=== PATIENT | male | born 1945 | race Caucasian/White ===

== ENCOUNTER 2021-04-07 08:51 | Observation (INO) ==
[2021-04-07] MEDS ORDERED: NS 0.9% 1000 ml BAG 1,000 ML IV ONE (09:14)
[2021-04-07 09:37] LABS: ABS Eosinophils 0.2 10^3/ul (0-0.6); ABS Lymphocytes 0.9 10^3/ul (1.0-4.8); ABS Monocytes 0.5 10^3/ul (0-0.8); ABS Neutrophils 11.5 10^3/ul (1.5-7.7); Eosinophil % 1.4 %; Hematocrit 40 % (42-52); Hemoglobin 13.7 g/dL (14.0-18.0); Lymphocyte % 6.6 %; Mean Corpuscular HGB Conc 34 g/dL (31-36); Mean Corpuscular Hemoglobin 32 pg (27-31); Mean Corpuscular Volume 93 fL (80-94); Mean Platelet Volume 8.9 fL (7.4-10.4); Platelet Count 217 10^3/uL (150-450); Red Blood Count 4.34 10^6 /uL (4.18-5.48); Red Cell Distribution Width 13 % (10-15); White Blood Count 13.2 10^3/uL (3.5-10.8)
[2021-04-07 09:57] LABS: Albumin 3.6 g/dL (3.2-5.2); Albumin/Globulin Ratio 1.2 (1-3); Calcium 8.8 mg/dL (8.6-10.3); EGFR African American 46.2 (>60); EGFR Non-African American 38.1 (>60); Globulin 3.1 g/dL (2-4); Potassium 4.7 mmol/L (3.5-5.0); Total Bilirubin 0.9 mg/dL (0.2-1.0); Total Protein 6.7 g/dL (6.4-8.9)
[2021-04-07] MEDS ORDERED: oxyCODONE/Acetamin 5/325 mg TAB PO ONE (10:08)
[2021-04-07 11:13] LABS: Urine Appearance Clear; Urine Bilirubin Negative (Negative); Urine Blood Negative (Negative); Urine Color Yellow; Urine Glucose Negative (Negative); Urine Ketones Negative (Negative); Urine Nitrite Negative (Negative); Urine Protein Negative (Negative); Urine Specific Gravity 1.017 (1.002-1.030); Urine Urobilinogen Negative (Negative)
[2021-04-07] MEDS ORDERED: cefTRIAXone 1 gm/50 mL NS BAG 1 GM/50 ML BAG IV ONE (11:28)
[2021-04-07] MEDS ORDERED: Iohexol 180 (CONTRAST) 20 ML SDV IV ONE (12:23)
[2021-04-07] MEDS ORDERED: fentaNYL 100 mcg/2 ml 50 MCG/ML VIAL ONE ×2 (12:52→14:56)
[2021-04-07] MEDS ORDERED: Lidocaine 2% PF 5 ML VIAL ONE (12:52)
[2021-04-07] MEDS ORDERED: Propofol 10 MG/ML 20 ML BTL ONE (12:52)
[2021-04-07] MEDS ORDERED: Ondansetron 4 mg VIAL 2 MG/ML 2 ml VIAL IV PRN (13:46)
[2021-04-07] MEDS ORDERED: Naloxone 0.4 mg VIAL 0.4 mg/ml 1 ml VIAL IV PRN (13:46)
[2021-04-07] MEDS ORDERED: DiMENhydriNATE IV 50 mg/ml 1 ml VIAL IV PUSH PRN (13:46)
[2021-04-07] MEDS ORDERED: oxyCODONE/Acetamin 5/325 mg TAB PO PRN ×2 (13:46→17:17)
[2021-04-07] MEDS: fentaNYL 100 mcg/2 ml 50 MCG/ML VIAL IV PRN ×2 (14:57→15:28)
[2021-04-07] MEDS: Brinzolamide 1% OPHTH SOL(NF) BTL BOTH EYES SCH (20:34)
[2021-04-07] MEDS ORDERED: Latanoprost 0.005% 2.5 ml BTL BOTH EYES SCH (21:00)
[2021-04-07] MEDS: NS 0.9% 1000 ml BAG 1,000 ML IV SCH (22:56)
[2021-04-08 04:38] LABS: ABS Eosinophils 0.2 10^3/ul (0-0.6); ABS Lymphocytes 1.3 10^3/ul (1.0-4.8); ABS Monocytes 0.9 10^3/ul (0-0.8); ABS Neutrophils 7.8 10^3/ul (1.5-7.7); Hematocrit 35 % (42-52); Lymphocyte % 13.1 %; Mean Corpuscular HGB Conc 35 g/dL (31-36); Mean Corpuscular Hemoglobin 32 pg (27-31); Mean Corpuscular Volume 94 fL (80-94); Nucleated Red Blood Cells % 0.1; Platelet Count 168 10^3/uL (150-450); Red Blood Count 3.71 10^6 /uL (4.18-5.48); Red Cell Distribution Width 13 % (10-15); White Blood Count 10.3 10^3/uL (3.5-10.8)
[2021-04-08 05:19] LABS: Calcium 7.7 mg/dL (8.6-10.3); EGFR African American 53.1 (>60); EGFR Non-African American 43.8 (>60); Potassium 4.4 mmol/L (3.5-5.0)
[2021-04-08] MEDS: NS 0.9% 1000 ml BAG 1,000 ML IV SCH (05:29)
[2021-04-08 05:39] LABS: Hepatitis C Antibody Negative (Negative)
[2021-04-08] MEDS: Brinzolamide 1% OPHTH SOL(NF) BTL BOTH EYES SCH (08:24)
[2021-04-08] MEDS ORDERED: Timolol 0.5% OPTH.SOL BTL LEFT EYE SCH (09:00)
[2021-04-08] MEDS ORDERED: NETARSUDIL MESYLATE EYE LEFT EYE SCH (09:00)
[2021-04-08] MEDS ORDERED: Alendronate 70 mg TAB (NF) PO SCH (09:00)
[2021-04-08 11:43] VITALS: BP 149/75
== END 2021-04-08 12:00 | disposition home or self-care (01) ==
LOC: ED 08:51 → SDS 12:05 → SSU 12:05
PROVIDERS: ADMIT Urology; ATTEND Urology

== ENCOUNTER 2024-11-23 11:26 | Inpatient (IN) ==
[2024-11-23 12:06] LABS: ABS Lymphocytes 0.3 10^3/uL (1.0-4.8); ABS Monocytes 0.3 10^3/uL (0.0-1.1); Eosinophil % 0.1 %; Hematocrit 40.5 % (38-53); Hemoglobin 13.4 g/dL (13.2-16.3); Lymphocyte % 2.3 %; Mean Corpuscular Hemoglobin 32.8 pg (27-33); Mean Corpuscular Hgb Conc 33.2 g/dL (31-36); Mean Corpuscular Volume 98.6 fL (80-97); Mean Platelet Volume 9.9 fL (7.5-11.2); Platelet Count 129 10^3/uL (150-450); Red Cell Distribution Width 13.4 % (12-17); White Blood Count 11.6 10^3/uL (3.6-10.2)
[2024-11-23 12:27] LABS: High Sens Troponin Baseline 17 pg/mL (<20)
[2024-11-23 12:38] LABS: ALT 31 U/L (7-52); AST 18 U/L (13-39); Albumin 3.6 g/dL (3.5-5.7); Albumin/Globulin Ratio 1.7 (1-3); Alkaline Phosphatase 75 U/L (35-149); Anion Gap 9 mmol/L (2-16); Blood Urea Nitrogen 43 mg/dL (6-24); CO2 Carbon Dioxide 25 mmol/L (22-32); Calcium 8.7 mg/dL (8.6-10.3); Chloride 90 mmol/L (101-111); Creatinine, Serum 1.97 mg/dL (0.67-1.17); Globulin 2.1 g/dL (2-4); Glucose 890 mg/dL (70-100); Potassium 5.6 mmol/L (3.5-5.0); Sodium 124 mmol/L (135-145); Total Bilirubin 2.3 mg/dL (0.2-1.0); Total Protein 5.7 g/dL (6.4-8.9); eGFR CKD-EPI 34.4 (>60)
[2024-11-23 12:47] LABS: Magnesium 1.9 mg/dL (1.9-2.7)
[2024-11-23] MEDS ORDERED: Dextrose 50% Syringe 50 ml 25 GM/50 ML SYRINGE IV PUSH PRN (12:53)
[2024-11-23 13:02] LABS: TSH Ultra Thyroid Stim Horm 2.69 mcIU/mL (0.34-5.60)
[2024-11-23] MEDS: NS 0.9% 1000 ml BAG 1,000 ML IV ONE (13:09)
[2024-11-23 13:18] LABS: Venous Bicarbonate HCO3 23.1 mmol/L (24-28)
[2024-11-23 13:25] LABS: High Sensitivity Troponin 1 Hr 17 pg/mL (<20)
[2024-11-23 13:41] LABS: Urine Appearance Clear; Urine Bilirubin Negative (Negative); Urine Blood Negative (Negative); Urine Color Light-Yellow; Urine Glucose 4+ (>=1000 mg/dL) (Negative); Urine Ketones 1+ (Negative); Urine Nitrite Negative (Negative); Urine Protein Negative (Negative); Urine Urobilinogen Negative (Negative)
[2024-11-23 14:00] LABS: Osmolality Serum 337 mOsm/kg (275-295)
[2024-11-23] MEDS: NORMOSOL-R pH 7.4 1000 mL BAG 1,000 ML IV ONE (14:07)
[2024-11-23] MEDS: Insulin Infusion 100unit/100mL 100 UNIT/100 ML BAG IV SCH ×4 (14:10→18:43)
[2024-11-23] MEDS: Insulin GLARGINE 100 un/ml 10 ml VIAL SUBCUT SCH (14:55)
[2024-11-23 15:10] LABS: C Reactive Protein 14.77 mg/L (<8.01); Rheumatoid Factor < 10 IU/mL (<15)
[2024-11-23] MEDS: NORMOSOL-R pH 7.4 1000 mL BAG 1,000 ML IV SCH (15:18)
[2024-11-23 16:14] LABS: Erythrocyte Sed Rate 15 mm/Hr (0-19)
[2024-11-23] MEDS ORDERED: Lactated Ringers 1000 ml BAG 1,000 ML IV SCH ×2 (17:00→20:00)
[2024-11-23 17:56] LABS: Blood Urea Nitrogen 40 mg/dL (6-24); CO2 Carbon Dioxide 20 mmol/L (22-32); Calcium 8.7 mg/dL (8.6-10.3); Chloride 102 mmol/L (101-111); Creatinine, Serum 1.57 mg/dL (0.67-1.17); Glucose 394 mg/dL (70-100); Sodium 133 mmol/L (135-145); eGFR CKD-EPI 45.1 (>60)
[2024-11-23 18:02] LABS: Potassium, Whole Blood 5.3 mmol/L (3.4-4.5)
[2024-11-23 18:08] LABS: Anion Gap 11 mmol/L (2-16)
[2024-11-23] MEDS: D5LR 1000 ml BAG 1,000 ML IV SCH ×2 (18:16→21:48)
[2024-11-23 19:26] LABS: Osmolality Serum 299 mOsm/kg (275-295)
[2024-11-23 19:49] LABS: Magnesium 2.1 mg/dL (1.9-2.7); Phosphorus 3.6 mg/dL (2.5-5.0)
[2024-11-23] MEDS: RHOPRESSA 0.02% LEFT EYE SCH (20:40)
[2024-11-23] MEDS: PTO:Travoprost 0.004% (NF) OPHTH.SOLN BOTH EYES SCH (20:40)
[2024-11-23] MEDS: BRINZOLAMIDE 1% BOTH EYES SCH (20:41)
[2024-11-23 23:50] LABS: Calcium 8.2 mg/dL (8.6-10.3); Creatinine, Serum 1.4 mg/dL (0.67-1.17); Magnesium 1.9 mg/dL (1.9-2.7); Phosphorus 3.8 mg/dL (2.5-5.0); Potassium 4.2 mmol/L (3.5-5.0); eGFR CKD-EPI 51.8 (>60)
[2024-11-24 06:54] LABS: Hematocrit 33.9 % (38-53); Hemoglobin 11.9 g/dL (13.2-16.3); Mean Corpuscular Hemoglobin 33.1 pg (27-33); Mean Corpuscular Hgb Conc 35.2 g/dL (31-36); Mean Corpuscular Volume 94.2 fL (80-97); Mean Platelet Volume 9.7 fL (7.5-11.2); Platelet Count 130 10^3/uL (150-450); Red Cell Distribution Width 13.9 % (12-17); White Blood Count 12.3 10^3/uL (3.6-10.2)
[2024-11-24 07:16] LABS: Calcium 8.3 mg/dL (8.6-10.3); Creatinine, Serum 1.63 mg/dL (0.67-1.17); Magnesium 1.9 mg/dL (1.9-2.7); Phosphorus 3.9 mg/dL (2.5-5.0); Potassium 3.8 mmol/L (3.5-5.0); eGFR CKD-EPI 43.1 (>60)
[2024-11-24 08:32] LABS: ABS Eosinophils 0.1 10^3/uL (0.0-0.5); ABS Lymphocytes 1.9 10^3/uL (1.0-4.8); ABS Monocytes 0.7 10^3/uL (0.0-1.1); ABS Neutrophils 9.6 10^3/uL (1.5-7.6); ABS Nucleated RBC 0.02 10^3/ul; Eosinophil % 0.8 %; Lymphocyte % 15.6 %; Nucleated Red Blood Cells % 0.1 %/100WBC (0.0-0.8)
[2024-11-24] MEDS ORDERED: NETARSUDIL MESYLATE LEFT EYE SCH (09:00)
[2024-11-24] MEDS: Lactated Ringers 1000 ml BAG 1,000 ML IV SCH (09:38)
[2024-11-24 10:10] LABS: Calcium 8.5 mg/dL (8.6-10.3); Creatinine, Serum 1.56 mg/dL (0.67-1.17); Magnesium 1.8 mg/dL (1.9-2.7); Phosphorus 3.7 mg/dL (2.5-5.0); Potassium 3.9 mmol/L (3.5-5.0); eGFR CKD-EPI 45.5 (>60)
[2024-11-24 14:39] LABS: Calcium 8.2 mg/dL (8.6-10.3); Creatinine, Serum 1.55 mg/dL (0.67-1.17); Magnesium 1.8 mg/dL (1.9-2.7); Phosphorus 2.6 mg/dL (2.5-5.0); Potassium 4.4 mmol/L (3.5-5.0); eGFR CKD-EPI 45.8 (>60)
[2024-11-24] MEDS: Enoxaparin 30 MG/0.3 ML SYR SUBCUT SCH (16:33)
[2024-11-25 07:03] LABS: Hematocrit 32.4 % (38-53); Hemoglobin 11.6 g/dL (13.2-16.3); Mean Corpuscular Hemoglobin 34.2 pg (27-33); Mean Corpuscular Hgb Conc 35.8 g/dL (31-36); Mean Corpuscular Volume 95.4 fL (80-97); Mean Platelet Volume 9.3 fL (7.5-11.2); Platelet Count 106 10^3/uL (150-450); Red Cell Distribution Width 13.8 % (12-17)
[2024-11-25 07:12] LABS: Creatinine, Serum 1.3 mg/dL (0.67-1.17); Magnesium 1.6 mg/dL (1.9-2.7); Potassium 3.8 mmol/L (3.5-5.0); eGFR CKD-EPI 56.6 (>60)
[2024-11-25 08:05] LABS: ABS Eosinophils 0.1 10^3/uL (0.0-0.5); ABS Lymphocytes 1.8 10^3/uL (1.0-4.8); ABS Monocytes 0.5 10^3/uL (0.0-1.1); ABS Neutrophils 7.6 10^3/uL (1.5-7.6); ABS Nucleated RBC 0.01 10^3/ul; Eosinophil % 1.1 %; Lymphocyte % 18.1 %; Nucleated Red Blood Cells % 0.1 %/100WBC (0.0-0.8); RBC Morphology Normal (Normal)
[2024-11-25] MEDS: Magnesium Sulfate 2 gm BAG 2 GM/50 ML BAG IVPB ONE (09:59)
[2024-11-25 10:40] VITALS: BP 130/66
[2024-11-25] MEDS: Magnesium Sulfate IV 1GM/100ML 1 GM/100 ML BAG IV ONE (11:17)
== END 2024-11-25 12:25 | disposition home or self-care (01) | DRG 420 ==
LOC: ED 11:26 → EDHOLD 13:12 → ICU 13:51 → MED 11-24 03:23
PROVIDERS: ADMIT Internal Medicine; ATTEND Internal Medicine